=== PATIENT | male | born 1945 | race Caucasian/White ===

== ENCOUNTER 2017-07-31 14:40 | Outpatient (CLI) | payer MEDICARE ==
--- NOTE | 2017-07-31 17:51 | MRI ---
Multiplanar, multisequence MRI examination of the right lower leg is performed with and without IV co ntrast. HISTORY: 72-year-old male with history of mass right lower leg with a severe cramp. Multiplanar and multisequence imaging demonstrates some scattered nonspecific subcutaneous fat strand ing. There is evidence of a high grade soleus muscle strain with a large hemorrhagic fluid collection noted between the soleus muscle and the overlying medial gastrocnemius muscle. This hemorrhagic pia ection measures approximately 2.1 x 4.6 cm in AP and transverse dimensions and approximately 18 cm in craniocaudal dimension. There is some minimal surrounding intramuscular fat stranding and some nonhe morrhagic fluid extending proximally between the medial gastrocnemius muscle and the popliteus muscle . There is no evidence for significant abnormal enhancement. There is no evidence of an enhancing mas s. No evidence of abnormal marrow signal. IMPRESSION: High grade soleus muscle strain with a large hemorrhagic fluid collection located between the soleus and medial gastrocnemius muscles. POS: [facility]
== END 2017-07-31 14:41 | disposition home or self-care (01) ==
LOC: SCSMRI 14:40
PROVIDERS: ATTEND Family Medicine
DX: R22.41 Localized swelling, mass and lump, right lower limb (principal); S86.819A Strain of other muscle(s) and tendon(s) at lower leg level, unspecified leg, initial encounter